=== PATIENT | female | born 1985 | race Caucasian/White ===

== ENCOUNTER 2017-07-03 10:16 | Inpatient (IN) | payer MEDICAID ==
[~2017-07-03] VITALS: Wt 102.2 kg
[~2017-07-03 10:16] MED LIST: CELEXA10 MG PO; LAMICTAL 25MG T25 MG PO; MIRTAZAPINE7.5 MG PO; PRENATAL1 TA7 PO; PROZAC20 MG PO
[2017-08-05] VITALS (27 sets, daily range): BP systolic 106–153; BP diastolic 59–93; PULSE 64–104; TEMP 97.9–98.2
[2017-08-05 08:29] LABS: BASO % 0.4 % (0.0-2.0); EOS # 0.1 (0.0-0.7); EOS % 0.5 % (0-4.0); GRAN # 8.2 (1.4-6.5); GRAN % 74.2 % (42.2-75.2); HEMATOCRIT 35.9 % (37.0-47.0); HEMOGLOBIN 12.5 g/dl (12.5-16.0); LYMPH # 2.1 (1.2-3.4); LYMPH % 18.6 % (20.0-51.0); MEAN CELL VOLUME 97 fl (80.0-100.0); MEAN CORPUSCULAR HEMOGLOBIN 34 pg (27.0-31.0); MEAN CORPUSCULAR HGB CONC 35 g/dl (33.0-37.0); MEAN PLATELET VOLUME 12.2 fl (7.4-10.4); MONO # 0.6 (0.1-0.6); MONO % 5.8 % (1.7-9.3); PLATELET COUNT 165 K/mm3 (130-400); RED BLOOD COUNT 3.71 M/mm3 (4.10-5.30); WHITE BLOOD COUNT 11.1 K/mm3 (4.8-10.8)
[2017-08-05 12:09] LABS: AMPHETAMINE URINE NEGATIVE; BARBITURATES URINE NEGATIVE; BENZODIAZEPINES URINE NEGATIVE; BUPRENORPHINE URINE NEGATIVE; METHADONE URINE NEGATIVE; OPIATES URINE NEGATIVE; OXYCODONE URINE NEGATIVE; PHENCYCLIDINE URINE NEGATIVE; PROPOXYPHENE URINE NEGATIVE; THC CANNABINOIDS URINE NEGATIVE; TRICYCLIC ANTIDEPRESS URINE NEGATIVE
[2017-08-06 05:00] VITALS: BP 116/70; PULSE 91; TEMP 97.7
[2017-08-06] MEDS ORDERED: IBU600 MG PO (08:27)
== END 2017-08-06 13:40 | disposition home or self-care (01) | DRG 775 ==
LOC: OB 08-05 06:34 → LDR 08-05 06:34 → OB 08-05 15:15 → LDR 08-08 10:16
PROVIDERS: Obstetrics & Gynecology
PROC: 10E0XZZ Delivery of Products of Conception, External Approach (ICD-10-PCS; principal; 2017-08-05)
PROC: 3E033VJ Introduction of Other Hormone into Peripheral Vein, Percutaneous Approach (ICD-10-PCS; 2017-08-05)
PROC: 0HQ9XZZ Repair Perineum Skin, External Approach (ICD-10-PCS; 2017-08-05)
DX: O48.0 Post-term pregnancy (principal); O36.0130 Maternal care for anti-D [Rh] antibodies, third trimester, not applicable or unspecified; O70.0 First degree perineal laceration during delivery; O99.334 Smoking (tobacco) complicating childbirth; F17.210 Nicotine dependence, cigarettes, uncomplicated; Z3A.40 40 weeks gestation of pregnancy; Z37.0 Single live birth
CPT/HCPCS: J2590; J2791; J7120

== ENCOUNTER → 2020-04-05 | Outpatient (CLI) | payer OTHER, MEDICAID ==
[~2020-04-05] MED LIST changes: +IBU600 MG PO
== END ==
LOC: ZCOL.LAB
DX: Z20.828 Contact with and (suspected) exposure to other viral communicable diseases (principal)

== ENCOUNTER 2020-04-11 07:09 | Inpatient (IN) | payer OTHER, MEDICAID ==
[~2020-04-11] VITALS: Ht 172.7 cm; Wt 108.2 kg
[2020-04-11] VITALS (40 sets, daily range): BP systolic 106–151; BP diastolic 53–91; PULSE 69–103; TEMP 98.2–99
--- NOTE | 2020-04-11 07:40 | NUR ---
Patient ambulatory to unit accompanied by significant other for scheduled pitocin induction of labor. Patient oriented to room and call light, clean gown on and resting in bed. Patient denies any leaking of fluid or vaginal bleeding and states baby has been active. FHR and contraction monitors placed and explained. Consents signed. Assessment completed. IV started in left hand and LR infusing. Labs collected from IV site and sent to lab. 0800: Pitocin started at 2ml/hr.
--- NOTE | 2020-04-11 08:37 | NUR ---
Patient feeling acid reflux and request tums. Tums given
[2020-04-11 09:04] LABS: BASO % 0.4 % (0.0-2.0); EOS # 0.1 (0.0-0.7); EOS % 0.8 % (0-4.0); GRAN # 8.6 (1.4-6.5); GRAN % 75.4 % (42.2-75.2); HEMATOCRIT 38.2 % (37.0-47.0); HEMOGLOBIN 13.1 g/dl (12.5-16.0); LYMPH # 1.9 (1.2-3.4); LYMPH % 16.4 % (20.0-51.0); MEAN CELL VOLUME 96 fl (80.0-100.0); MEAN CORPUSCULAR HEMOGLOBIN 33 pg (27.0-31.0); MEAN CORPUSCULAR HGB CONC 34 g/dl (33.0-37.0); MEAN PLATELET VOLUME 12.2 fl (7.4-10.4); MONO # 0.7 (0.1-0.6); MONO % 6.5 % (1.7-9.3); PLATELET COUNT 154 K/mm3 (130-400); RED BLOOD COUNT 3.98 M/mm3 (4.10-5.30); REDCELL DISTRIBUTION WIDTH-CV 13.3 % (11.5-14.5)
--- NOTE | 2020-04-11 09:10 | NUR ---
Dr. Butler at nurses station and reviews FHR and contractions since admission. In patient room and plan of care discussed. 0912: SVE by Dr. Butler with AROM. Small amount of clear fluid noted with AROM. Pericare provided, patient resting in bed, call light in reach.
--- NOTE | 2020-04-11 09:52 | NUR ---
0950: patient breathing controlled through contractions. Patient requesting an epidural. LR bolus started. 0952: Kris Bergeron CRNA called for patient epidural request.
--- NOTE | 2020-04-11 10:30 | NUR ---
1030: Patient sitting up at side of bed for epidural placement. Kris Bergeron CRNA in room, epidural explained and health hx reviewed. 1103: Epidural catheter placed. 1104: test dose given. No reaction to test dose. Epidural taped and secured to patient's back. Patient repositioned and resting wedged left in bed. See anesthesia records.
--- NOTE | 2020-04-11 11:33 | NUR ---
1133: Mann catheter placed using sterile technique. Patient tolerates well. 1134: FHR deceleration down to 50-60 bpm. Pitocin off. Patient repositioned to far left lateral then right lateral. Oxygen on via face mask at 10L. SVE 4-5/90/-2. Patient states she is feeling tired and nauseated. BP drop. T. Rubio EVENTS DIRECTOR in room and 10mg Ephedrine given IV. 1145: Patient states she is feeling better and denies nausea. VS WNL. Dr. Butler called and report given.
--- NOTE | 2020-04-11 11:55 | NUR ---
1155: Dr. Butler calls back and report given on FHR deceleration. Now, FHR accelerations noted, no deceleration. Verbal order to restart pitocin at 6ml/hr. Pitocin started at 1158.
--- NOTE | 2020-04-11 12:20 | NUR ---
1220: FHR deceleration dwon to 80-90 bpm. Pitocin off. Patient repositioned to far left lateral then back to right later. scalp electrode placed but not tracing well and off at 1227. External monitor adjusted and tracing wel. SVE 8/100/0. FHR returns to [address] Butler notified.
--- NOTE | 2020-04-11 13:05 | NUR ---
1305: Dr. Butler in room for delivery. Patient prepped for delivery. patient begins pushing at 1312. 1315: Spontaneous vaginal delivery of head immediately followed by infant body. Infant to mothers abdomen where attended to by Olayinka Trinh RN. Cord clamped and cut by Dr. Butler. 1323: Spontaneous and intact delivery of placenta. Pitocin on and started at 333ml/hr. Fundus massaged, firm and at umbilicus. Second degree midline laceration repaired. Pericare provided. Count corrent after delivery. Patient sitting up in bed holding . See labor and delivery summary, doctor dictation and anesthesia records.
--- NOTE | 2020-04-11 15:56 | NUR ---
1556: No straight cath kits available on unit. Patient unable to move left leg and feels very numb from epidural still. Mann catheter placed.
--- NOTE | 2020-04-11 18:00 | NUR ---
Mann catheter removed. Pericare provided. Pad and underwear placed. New gown on. Patient still feels like left leg is heavy, able to slide in bed but not raise off bed. Epidural catheter removed, blue tip intact, band aid to site. quarter sized bruise noted at epidural site. IV to INT. Patient assisted with transfer to wheelchair. Patient taken to room 216, oriented to room and call light. Resting in bed holding .
[2020-04-12 00:30] VITALS: BP 108/59; PULSE 86; TEMP 97.6
[2020-04-12 04:30] VITALS: BP 108/65; PULSE 81; TEMP 97.9
[2020-04-12] MEDS ORDERED: IBU600 MG PO (05:54)
[2020-04-12 08:39] VITALS: BP 129/74; PULSE 96; TEMP 98.8
--- NOTE | 2020-04-12 10:20 | NUR ---
Initial visit; Parents thanked for offering congratulations for the of their son. thanked family for choosing [facility].
== END 2020-04-12 17:00 | disposition home or self-care (01) | DRG 807 ==
LOC: OB 07:09 → LDR 07:09 → OB 10:49
PROVIDERS: ADMIT Obstetrics & Gynecology
PROC: 10E0XZZ Delivery of Products of Conception, External Approach (ICD-10-PCS; principal; 2020-04-11)
PROC: 10907ZC Drainage of Amniotic Fluid, Therapeutic from Products of Conception, Via Natural or Artificial Opening (ICD-10-PCS; 2020-04-11)
PROC: 0KQM0ZZ Repair Perineum Muscle, Open Approach (ICD-10-PCS; 2020-04-11)
PROC: 0UQMXZZ Repair Vulva, External Approach (ICD-10-PCS; 2020-04-11)
DX: O48.0 Post-term pregnancy (principal); Z37.0 Single live birth; O70.1 Second degree perineal laceration during delivery; O99.334 Smoking (tobacco) complicating childbirth; F17.200 Nicotine dependence, unspecified, uncomplicated; Z3A.40 40 weeks gestation of pregnancy
CPT/HCPCS: J2590; J2791; J7120